=== PATIENT | female | born 1980 | race Hispanic/Latino ===

== ENCOUNTER 2021-10-10 10:55 | Emergency (ER) | payer OTHER ==
[2021-10-10] MEDS ORDERED: Ketorolac Tromethamine 30 MG/ML VIAL ONE (13:17)
[2021-10-10] MEDS ORDERED: Ondansetron PF 4 MG/2 ML Vial ONE (13:17)
[2021-10-10 13:25] LABS: Bilirubin Neg (Negative); Blood, Urine Negative (Negative); Clarity Clear (Clear); Glucose, Urine (Dipstick) Normal (Negative); Ketone, Urine Negative (Negative); Leukocyte Negative (Negative); Nitrite Negative (Negative); Protein, Urine (Dipstick) Negative (Neg-Trace); Urobilinogen Normal mg/dL (Less than 2)
[2021-10-10] MEDS ORDERED: Iopamidol 300 61% 100 ML VIAL FS ONE (14:55)
== END 2021-10-10 15:20 | disposition home or self-care (01) ==
LOC: CSHERS 10:55
DX: M54.2 Cervicalgia (principal); M25.559 Pain in unspecified hip; M54.50 Low back pain, unspecified; R10.9 Unspecified abdominal pain; V49.60XA Unspecified car occupant injured in collision with unspecified motor vehicles in traffic accident, initial encounter
CPT/HCPCS: 70450; 72125; 74177; 81003; 96374; 96375; J1885; J2405